=== PATIENT | male | born 2000 | race African-American/Black ===

== ENCOUNTER 2019-04-23 19:43 | Emergency (ER) | payer BC, SELFPAY ==
[2019-04-23 19:44] VITALS: BP 131/71; PULSE 90; RESP 16; TEMP 36.6; O2SAT 100; BMI 24.3
--- NOTE | 2019-04-23 20:26 | ED.VIS.GEN ---
History of Present Illness Chief Complaint: Laceration Detail of Chief Complaint: Left scalp laceration Informant: Patient Onset: Today Current Severity: Mild Maximum Severity: Moderate Narrative: Patient was [place] today when he was hit in the head by a stray golf ball. He was not knocked to the ground but did not lose consciousness. He is a laceration to the left frontal scalp. Tetanus is up-to-date. He denies any other injury. Past Medical History - Allergies and Home Meds Allergies/Adverse Reactions: Allergies No Known Allergies Allergy (Verified 04/23/19 19:47) [facility] - 7 Days for suture removal Prior records reviewed: Yes Past Medical History: - - Reviewed Smoking Status: Current every day smoker Review of Systems General: Denies: Chills, Fever Eyes: Denies: Visual changes - bilaterally ENT: Denies: Bilateral ear pain Cardiovascular: Denies: Chest pain Respiratory: Denies: Dyspnea Gastrointestinal: Denies: Abdominal pain, Nausea, Vomiting, Diarrhea Musculoskeletal: Denies: Neck pain Neurological: Reports: Headache - Frontal scalp only Hematologic: Denies: Easy bruising Allergy: Denies: Uticaria Physical Exam Vital Signs/Narrative: Vital Signs Temp Pulse Resp BP Pulse Ox 04/23/19 19:44 98 F 90 16 131/71 H 100 Inital Vital Signs reviewed: Yes General: Well nourished, Well developed Head: - - 4 cm Laceration to the anterior left frontal scalp. Eyes: Perrl, EOMI ENT: Moist mucous membranes Neck: Supple, - - No C-spine tenderness. Cardiovascular: Regular rate, Regular rhythm Respiratory: No distress, CTA bilaterally Abdomen: Soft, Nontender Extremities: Nontender Skin: - - Laceration as above Neurological: Alert, Oriented x3, Normal Strength, Normal Sensation Psychological: Normal affect Diagnostic/Tx/Re-eval - Medical Decision Making Let was applied to the wound. Wound was cleansed and anesthetized with 6 cc 1% lidocaine. Laceration was an ear regular flap, measuring 1 cm on one side and 3 cm on the other. A total of 4 lesa were placed to close the wound. Patient will have lesa removed in 5 to 7 days. Procedures - Lacerations No standard instances Length: 1.57 in Depth: Sub Q Laceration repair: Lidocaine, Local Number of Sutures/Lesa: 4 - lesa ED Disposition - Plan for ED Patient: Disposition: Home or Assisted Living Diagnosis: Scalp laceration Instructions: LACERATION, Scalp Referrals: Yvonne Conrad [GROUP OF PHYSICIANS] - 7 Days for suture removal
[2019-04-23] MEDS: Lidocaine/Epi/Tetracaine 50 ML 1 APPLIC TOPICAL (20:27)
[2019-04-23 22:04] VITALS: BP 131/71; PULSE 90; RESP 15; O2SAT 96
== END 2019-04-23 22:22 | disposition home or self-care (01) ==
PROVIDERS: Emergency Provider Emergency Medicine
DX: S01.01XA Laceration without foreign body of scalp, initial encounter (principal); W21.04XA Struck by golf ball, initial encounter; Y93.9 Activity, unspecified; Y92.9 Unspecified place or not applicable; F17.200 Nicotine dependence, unspecified, uncomplicated
CPT/HCPCS: 12002; 99283

== ENCOUNTER → 2019-05-20 15:08 | Outpatient (CLI) | payer BC, SELFPAY ==
[2019-04-23 19:44] VITALS: BMI 24.3
[2019-05-20 16:24] LABS: Erythrocyte Sedimentation Rate < 1 mm/hr (0-15)
[2019-05-20 16:40] LABS: Hemoglobin A1c 4.6 % (4.2-6.3)
[2019-05-20 16:44] LABS: T3 Total - Triiodothyronine 1.04 ng/mL (0.6-1.81); Vitamin B12 585 pg/mL (211-911); Vitamin D,25 Hydroxy 28.4 ng/mL (29.95-100.01)
[2019-05-20 16:50] LABS: BUN 15 mg/dL (7-18); Creatinine, Serum 1.04 mg/dL (0.70-1.30); EST Glomerular Filtration Rate 96 mL/min (>60); Est Glom Filt Rate - Afr Amer 116 mL/min (>60); Rheumatoid Factor < 10.0 IU/mL (<15); T4 Total, Thyroxin 10.4 ug/dL (4.5-12.1); Thyroid Stim Hormone (TSH) 0.56 uIU/mL (0.358-3.74)
[2019-05-23 20:07] LABS: Albumin 4.2 g/dL (2.9-4.4); Alpha-1-Globulins 0.2 g/dL (0.0-0.4); Alpha-2-Globulins 0.6 g/dL (0.4-1.0); Gamma Globulin 0.9 g/dL (0.4-1.8); Immunoglobulin A 240 mg/dL (90-386); Immunoglobulin G 902 mg/dL (700-1600); Immunoglobulin M 64 mg/dL (20-172)
[2019-05-24 16:13] LABS: Treponema palladium Ab (FTA) Non Reactive (Non Reactive)
[2019-05-24 16:26] LABS: ANTINUCLEAR ANTIBODIES DIRECT Negative (Negative)
[2019-05-27 02:40] LABS: Rapid Plasmin Reagin (RPR) NONREACTIVE (NONREACTIVE)
== END ==
DX: G62.9 Polyneuropathy, unspecified (principal); R51 Headache
CPT/HCPCS: 36415; 82306; 82565; 82607; 82746; 82784; 83036; 84165; 84436; 84443; 84480; 84520; 85652; 86038; 86334; 86431; 86592; 86780

== ENCOUNTER 2021-10-24 16:45 | Outpatient (CLI) | payer BC, SELFPAY | END 2021-10-24 23:59 | disposition home or self-care (01) | LOC: IMMUN 10-25 16:45 | PROVIDERS: Visit Provider Family Medicine | DX: Z23 Encounter for immunization (principal) ==